=== PATIENT | male | born 1935 | race Caucasian/White ===

== ENCOUNTER 2021-07-09 05:43 | Outpatient (CLI) | payer MEDICARE ==
[~2021-07-09] VITALS: Ht 167.7 cm; Wt 97.7 kg
[2021-07-12] MEDS ORDERED: C,E,1CAP2 PO (10:44)
[2021-07-12] MEDS ORDERED: CHOL-34 PO (10:44)
[2021-07-12] MEDS ORDERED: LOVA20TA2 PO (10:44)
[2021-07-12] MEDS ORDERED: TMSL.4C PO (10:44)
[2021-07-12] MEDS ORDERED: TICA90TA PO (10:44)
[2021-07-12] MEDS ORDERED: FURO40TA4 PO (10:44)
[2021-07-12] MEDS ORDERED: MULT-1061 PO (10:44)
[2021-07-12] MEDS ORDERED: OMEP20CA18 PO (10:44)
[2021-07-12] MEDS ORDERED: FINA5TAB6 PO (10:44)
[2021-07-12] MEDS ORDERED: METO-333 PO (10:44)
[2021-07-12] MEDS ORDERED: POTA-51 PO (10:44)
[2021-07-12] MEDS ORDERED: ISOS30TA82 PO (10:44)
[2021-07-12] MEDS ORDERED: DILT300C52 PO (10:44)
[2021-07-12] MEDS ORDERED: LEVO125C4 PO (10:44)
[2021-07-12] MEDS ORDERED: PEDI18TA2 PO (10:44)
== END 2021-07-12 10:48 | disposition home or self-care (01) ==
LOC: PREOP 05:43
PROVIDERS: ATTEND Urology
DX: Z01.818 Encounter for other preprocedural examination (principal)

== ENCOUNTER 2021-07-15 07:04 | Day surgery (SDC) | payer MEDICARE, BC ==
[2021-07-15] VITALS (8 sets, daily range): BP systolic 119–144; BP diastolic 69–96
[~2021-07-15] VITALS: Ht 167.7 cm; Wt 97.7 kg
[~2021-07-15 07:04] MED LIST: C,E,1CAP2 PO; CHOL-34 PO; DILT300C52 PO; FINA5TAB6 PO; FURO40TA4 PO; ISOS30TA82 PO; LACTATED RINGERS 1,000 ML IV PRN; LEVO125C4 PO; LOVA20TA2 PO; METO-333 PO; MULT-1061 PO; OMEP20CA18 PO; PEDI18TA2 PO; POTA-51 PO; TICA90TA PO; TMSL.4C PO
[2021-07-15] MEDS ORDERED: fentaNYL INJ 100 MCG/2 ML AMP ONE (07:46)
[2021-07-15] MEDS ORDERED: WATER (STERILE) FOR INJECTION 10 ML ONE (07:46)
[2021-07-15] MEDS ORDERED: ROCURONIUM 10 MG/ML 5 ML SYRINGE IV ONE (07:46)
[2021-07-15] MEDS ORDERED: SEVOFLURANE (ULTANE) 15 ML INHAL SOLN ONE (07:46)
[2021-07-15] MEDS ORDERED: cefTRIAXone 1,000 MG VIAL ONE (07:46)
[2021-07-15] MEDS ORDERED: ONDANSETRON 4 MG/2 ML (SDV) Z0FRAN ONE (07:46)
[2021-07-15] MEDS ORDERED: proPOfol 200 MG/20 ML (DIPRIVAN) VIAL IV ONE (07:46)
[2021-07-15] MEDS ORDERED: MIDAZOLAM 2 MG/2 ML (VERSED) VIAL ONE (07:46)
[2021-07-15] MEDS ORDERED: LIDOCAINE PF 2% 5 ML (XYLOCAINE) VIAL ONE (07:46)
[2021-07-15] MEDS ORDERED: cefTRIAXone 1,000 MG in WATER (STERILE) FOR INJECTION 10 ML IV ONE (08:00)
--- NOTE | 2021-07-15 08:20 | Progress Note-Pre Operative ---
Pre-Operative Progress Note H&P Reviewed The H&P was reviewed, patient examined and no changes noted. Date Seen by Provider: Jul 15, 2021 Time Seen by Provider: 08:20 Date H&P Reviewed: Jul 15, 2021 Time H&P Reviewed: 08:20 Pre-Operative Diagnosis: BLADDER TUMOR MARGOT THOMAS MD Jul 15, 2021 08:20
--- NOTE | 2021-07-15 08:21 | Progress Note-Post Operative ---
Post-Operative Progess Note Surgeon (s)/Bender Machine (s) Surgeon MARGOT THOMAS MD Bender Machine: NONE Pre-Operative Diagnosis BLADDER TUMOR (MEDIUM) Post-Operative Diagnosis SAME Procedure & Operative Findings Date of Procedure 07/15/21 Procedure Performed/Findings TURBT Anesthesia Type GENERAL Estimated Blood Loss Estimated blood loss (mL): NEGLIGIBLE Specimens/Packing Specimens Removed BLADDER TUMOR AND BASE Packing: NONE MARGOT THOMAS MD Jul 15, 2021 08:21
[2021-07-15] MEDS ORDERED: GLYCOPYRROLATE 0.2 MG/ML (ROBINUL) 2 ML VIAL ONE (08:42)
[2021-07-15] MEDS ORDERED: NEOSTIGMINE 3 MG/3 ML VIAL ONE (08:42)
[2021-07-15] MEDS ORDERED: morphine INJ 10 MG/ML 1ML (SYR OR VIAL) IVP ONE (09:00)
[2021-07-15] MEDS ORDERED: ONDANSETRON 4 MG/2 ML (SDV) Z0FRAN IVP PRN (09:00)
--- NOTE | 2021-07-15 09:16 | Discharge Inst-Urology ---
Discharge Inst-Urology Reconcile Patient Problems Problems Reviewed?: Yes Final Diagnosis BLADDER TUMOR Patient Instructions/Follow Up Plan/Assessment/Instructions Please make appointment to been seen in office in 2 weeks. Hold ASA, resume Monday if no bleeding, hold if starts bleeding Please call RX for Bactrim DS bid for 7 days and pyridium 200 tid prn #15 Increase oral fluids for 48 hours and then as needed. Diet and Activity as tolerated. If questions or concerns contact your physician Or seek help at emergency department. MARGOT THOMAS MD Jul 15, 2021 09:16
--- NOTE | 2021-07-15 10:22 | Anesthesia-General Post-Op ---
General Patient Condition Mental Status/LOC: Same as Preop Cardiovascular: Satisfactory Nausea/Vomiting: Absent Respiratory: Satisfactory Pain: Controlled Complications: Absent Post Op Complications Complications None Follow Up Care/Instructions Patient Instructions None needed. Anesthesia/Patient Condition Patient Condition Patient is doing well, no complaints, stable vital signs, no apparent adverse anesthesia problems. No complications reported per nursing. D/C home per [facility] [place] Criteria: Yes GREGORIA FRIAS CRNA Jul 15, 2021 10:22
[2021-07-15] MEDS ORDERED: PHEN-640 PO (10:41)
[2021-07-15] MEDS ORDERED: SULF1TAB38 PO (10:41)
--- NOTE | 2021-07-15 13:33 | OPERATIVE REPORT ---
DATE OF SERVICE: 07/15/2021 PREOPERATIVE DIAGNOSIS: Medium bladder tumor. POSTOPERATIVE DIAGNOSIS: Medium bladder tumor. OPERATION PERFORMED: Transurethral resection of bladder tumor. SURGEON: Margot Thomas MD. ANESTHESIA: General. COMPLICATIONS: None. DESCRIPTION OF PROCEDURE: Under satisfactory general anesthesia, the patient in lithotomy position, genitalia were prepped and draped in the usual sterile fashion. Urethra was dilated with Melia sound to #30 Faroese to accommodate a 27-Faroese Florian resectoscope easily. Again, visualized a solid looking medium sized tumor above and medial to the left ureteral orifice. It was completely resected and chips of the base were sent separately. Bleeders were cauterized and hemostasis was complete and resection as well. There was no further bladder tumor. Bladder was evacuated and the resectoscope was removed. There was no need for catheter. The patient tolerated the procedure and anesthesia well and was sent to recovery room in a stable condition. Job ID: [id number] DocumentID: [id number] Dictated Date: 07/15/2021 09:17:42 Tank Assembler Date: 07/15/2021 13:32:38 Dictated By: MARGOT THOMAS MD
== END 2021-07-15 11:20 | disposition home or self-care (01) ==
LOC: SDC 07:04
PROVIDERS: ATTEND Urology
DX: D49.4 Neoplasm of unspecified behavior of bladder (principal); I10 Essential (primary) hypertension; I25.10 Atherosclerotic heart disease of native coronary artery without angina pectoris; K21.9 Gastro-esophageal reflux disease without esophagitis; Z87.891 Personal history of nicotine dependence; Z79.899 Other long term (current) drug therapy
CPT/HCPCS: 36430; 87081